=== PATIENT | female | born 1950 | race Caucasian/White ===

== ENCOUNTER 2016-08-20 08:37 | Day surgery (SDC) | payer OTHER ==
[2016-08-20] MEDS ORDERED: IOHEXOL 350 MG/ML 100ML IJ ONE (08:59)
[2016-08-20] MEDS ORDERED: LIDOCAINE 2%HCL (LOCAL ANESTH.) INJ 20ML MDV ONE (08:59)
[2016-08-20] MEDS ORDERED: fentaNYL CITRATE 100 MCG/2 ML VL ONE (11:06)
[2016-08-20] MEDS ORDERED: MIDAZOLAM HCL 1MG/1ML-2 ML VIAL ONE (11:06)
[2016-08-20] MEDS ORDERED: SODIUM CHL 0.9% 0 ML ONE (11:07)
[2016-08-20] MEDS ORDERED: EPTIFIBATIDE INJ (2MG/ML) 10ML VIAL IV ONE (11:07)
[2016-08-20] MEDS ORDERED: ANGIOMAX 250 MG VIAL IV ONE (11:07)
== END 2016-08-20 14:00 | disposition home or self-care (01) ==
LOC: CATH 08:37
PROVIDERS: ATTEND Internal Medicine Cardiovascular Disease
DX: I50.1 Left ventricular failure, unspecified (principal)
CPT/HCPCS: 93458; C1760; C1894; J1644; J2250; J3010; J7030; Q9967; 99152